=== PATIENT | female | born 1965 | race Caucasian/White ===

== ENCOUNTER 2016-08-14 17:09 | Emergency (ER) | payer SELFPAY ==
[~2016-08-14] VITALS: Ht 172.7 cm; Wt 106.8 kg
[2016-08-14 17:32] VITALS: BP 136/76
[2016-08-14] MEDS ORDERED: OXYC10 PO (17:44)
[2016-08-14] MEDS ORDERED: IBUP-1547 PO (17:44)
== END 2016-08-14 19:36 | disposition left against medical advice (07) ==
LOC: EMS 17:26
DX: M25.571 Pain in right ankle and joints of right foot (principal); Z53.21 Procedure and treatment not carried out due to patient leaving prior to being seen by health care provider